=== PATIENT | female | born 2000 | race Caucasian/White ===

== ENCOUNTER → 2019-03-21 | Outpatient (CLI) | payer BC ==
--- NOTE | 2019-03-21 20:34 | RADIOLOGY IMAGING REPORT ---
FACILITY: [facility] PATIENT NAME: Martha Mejía : 2000 MR: [id number] V: [id number] EXAM DATE: ORDERING PHYSICIAN: AMOL MCCOY TECHNOLOGIST: Location: [facility] Patient: Martha Mejía : 2000 Visit/Account:[id number] Date of Sevice: 03/21/2019 2 VIEWS CHEST INDICATION: Positive TB test COMPARISON: None available FINDINGS: Heart size within normal limits. Lungs are clear. No evidence of lymphadenopathy. Lung apices are unremarkable. No effusion or pneumot horax. Unremarkable appearance of the bones. IMPRESSION: 1. No acute cardiopulmonary process. Report Dictated By: Stevenson Sexton MD at 03/21/2019 8:26 PM Report E-Signed By: Stevenson Sexton MD at 03/21/2019 8:26 PM WSN:[id number]
== END ==
LOC: RAD 16:28
DX: R76.12 Nonspecific reaction to cell mediated immunity measurement of gamma interferon antigen response without active tuberculosis (principal)
CPT/HCPCS: 71046